=== PATIENT | female | born 1950 | race Caucasian/White ===

== ENCOUNTER → 2020-03-29 15:01 | Outpatient (CLI) | payer MEDICARE, SELFPAY ==
--- NOTE | ~2020-03-29 | MM_ITS ---
EXAMINATION: MM screening [facility] BI w janette HISTORY: Screening mammogram TECHNIQUE: Craniocaudal and mediolateral oblique 3-D tomosynthesis images were obtained and synthetic 2-D images were generated. CAD analysis was submitted and interpreted. COMPARISON: 01/22/2019, 12/25/2017, 12/16/2016 BREAST PARENCHYMAL COMPOSITION: The breasts are almost entirely fatty. FINDINGS: There is stable architectural distortion and dystrophic calcification in the middle third o f the upper left breast at site of prior excisional biopsy. There is no evidence of suspicious mass, calcification, or architectural distortion to suggest malignancy in either breast. There has been no suspicious interval change. IMPRESSION: 1. No mammographic evidence of malignancy. 2. Recommend routine screening mammography in one year. BI-RADS Category 2: Benign finding(s). Reviewed, dictated and finalized at location A.
== END ==
PROVIDERS: PCP Physician Assistant; Visit Provider Physician Assistant
DX: Z12.31 Encounter for screening mammogram for malignant neoplasm of breast (principal)
CPT/HCPCS: 77063; 77067

== ENCOUNTER → 2020-09-29 09:03 | Outpatient (CLI) | payer MEDICARE, SELFPAY ==
--- NOTE | ~2020-09-29 | CT_ITS ---
EXAMINATION: CT chest wo con DATE: 09/29/2020 09:31 INDICATION: Pulmonary nodule TECHNIQUE: Computed tomography (CT) of the chest was performed without intravenous contrast. The dose -length product (DLP) was 616.22 mGy-cm. Automated exposure control and iterative reconstruction tech June Black[employer] were employed. COMPARISON: 09/30/2019, 05/28/2019 FINDINGS: There is a new 1.3 cm subpleural nodule of the left lower lobe on image 75. There is a 1.9 cm subsolid nodule of the right upper lobe which has developed a 4 mm internal solid component (image 32). There are additional stable groundglass nodules in the left upper lobe, the superior segment of the right lower lobe. There is no pleural effusion or pneumothorax. The heart size is normal. Michele ry artery atherosclerosis is noted. There are no pathologically enlarged thoracic lymph nodes. Calcif ied pulmonary nodules and calcified right hilar and mediastinal lymph nodes are consistent with old g ranulomatous disease. Punctate calcifications in otherwise normal appearing liver and spleen likely r epresent healed granulomatous disease. There is mild thoracic spondylosis. IMPRESSION: 1. New 1.3 cm subpleural nodule of the left lower lobe suspicious for primary bronchogenic carcinoma. Recommend PET/CT or tissue sampling. 2. Development of a 4 mm solid component within a subsolid nodule of the right upper lobe. Follow-up low-dose CT in 3 months is recommended. 3. Multiple additional stable groundglass nodules of the lungs, likely benign. Reviewed, dictated and finalized at location A. NSING SPECIALIST IMPRESSION: 1. New 1.3 cm subpleural nodule of the left lower lobe suspicious for primary b ronchogenic carcinoma. Recommend PET/CT or tissue sampling. 2. Development of a 4 mm solid component within a subsolid nodule of the right upper lobe. Follow-up low-dose CT in 3 months is recommended. 3. Multiple additional stable groundglass nodules of the lungs, likely benign.
== END ==
PROVIDERS: PCP Internal Medicine; Visit Provider Internal Medicine
DX: R91.1 Solitary pulmonary nodule (principal)
CPT/HCPCS: 71250

== ENCOUNTER 2020-10-10 08:40 | Outpatient (CLI) | payer MEDICARE, SELFPAY ==
--- NOTE | ~2020-10-10 | PE_ITS ---
EXAMINATION: PET skull to mid thigh DATE: 10/10/2020 11:14 INDICATION: Lung nodules TECHNIQUE: Blood glucose level was 140 mg/dL. 10.56 mCi of 18-fluorodeoxyglucose (18-FDG) was adminis tered i.v. Low dose computed tomography (CT) images were acquired from the base of the brain to the p roximal thighs for attenuation correction and anatomic localization. Positron emission tomography (PE T) images were acquired in the same distribution beginning 61 minutes after injection. Images includi ng fused PET/CT images were reconstructed in axial, coronal, and sagittal planes. Automated exposure control technique was employed. The dose-length product was 1237.10 mGy-cm. COMPARISON: Chest CT dated 09/29/2020 and 09/30/2019 FINDINGS: Head/neck: There is symmetric increased activity in the oral cavity, palatine tonsils, parotid glands, submandi bular glands, laryngeal muscles and ocular muscles without CT correlate, likely physiologic. There is also mild likely physiologic increased FDG uptake at some of the cervical paraspinal musculature wit hout radiologic correlate. No pathologically enlarged cervical lymphadenopathy or suspicious foci of increased FDG uptake in the visualized head or neck. Chest: No significant increased FDG uptake associated with a 1.4 cm subpleural left lower lobe nodule which is increased from 5 x [address] dated 09/30/2019. Also without evident FDG uptake are a few subsolid nodular opacities in the bilateral upper lobes and superior segment of the right lower lobe. No new n odules or other airspace opacities or pleural effusion. Heart size is normal. Atherosclerotic coronar y artery cascade lesions. No pericardial effusion. Dual-lead cardiac pacemaker with lead tips at the right atrial appendage and near the apex of the right ventricle. Retained epicardial pacemaker leads. No pathologically enlarged or abnormal FDG avid thoracic lymphadenopathy. Abdomen/pelvis/proximal thighs: Physiologic renal accumulation and excretion of FDG activity in the kidneys, bladder and along portio ns of ureters. Normal degree and heterogenous pattern of increased uptake throughout the liver withou t radiologic correlate or dominant FDG avid lesion. The gallbladder, pancreas and bilateral adrenal g lands are normal. Splenic calcifications consistent with old granulomatous disease. Mild to moderate uptake scattered throughout the bowels without radiologic correlate, also likely physiologic. Postope rative change of prior ventral hernia mesh repair. No other abnormal foci of increased FDG uptake or pathologically enlarged lymphadenopathy in the abdomen, pelvis or proximal thighs. There is calcified atherosclerosis of the aorta and many of the other arteries. Musculoskeletal: There are bridging osteophytes at multiple levels in the thoracic spine, consistent with diffuse idio pathic skeletal hyperostosis (DISH). Severe lumbar spondylosis. No suspicious lytic, blastic or FDG a vid bone lesions. IMPRESSION: 1. Persistent 1.4 cm subpleural nodule in the left lower lobe which appears to be increase in size fr om 5 x [address] dated . Despite the low level of FDG uptake the interval growth is concernin g for low-grade malignancy and would consider further evaluation with CT-guided percutaneous biopsy. 2. No evident increased FDG uptake associated with several previous the described subsolid nodules in the bilateral upper lobe and superior segment of the right lower lobe. Although reassuring low-grade malignancy cannot be absolutely excluded and would recommend continued follow-up noncontrast chest C T in 3 months as previously recommended. Reviewed, dictated and finalized at location B. OMETRICIAN
[2020-10-10 09:19] LABS: Glucose Point of Care 140 (65-105)
== END 2020-10-10 08:41 | disposition home or self-care (01) ==
LOC: ANHIMG 08:47
PROVIDERS: PCP Physician Assistant; Visit Provider Physician Assistant
DX: R91.8 Other nonspecific abnormal finding of lung field (principal)
CPT/HCPCS: 78815; A9552

== ENCOUNTER 2020-10-17 01:23 | Outpatient (CLI) | payer MEDICARE, SELFPAY ==
[2020-10-17 19:18] LABS: SARS-CoV-2 RNA PCR Negative
== END 2020-10-17 01:24 | disposition home or self-care (01) ==
LOC: ANHCOVIDDT 01:24
PROVIDERS: PCP Physician Assistant; Visit Provider Internal Medicine
DX: Z01.812 Encounter for preprocedural laboratory examination (principal); Z20.822 Contact with and (suspected) exposure to COVID-19
CPT/HCPCS: C9803; U0003; U0005

== ENCOUNTER 2020-10-20 09:03 | Outpatient (CLI) | payer MEDICARE, SELFPAY ==
[2020-10-13 08:54] VITALS: BMI 45.2
[2020-10-20] VITALS (11 sets, daily range): BP systolic 124–178; BP diastolic 57–68; PULSE 59–70; RESP 18–20; O2SAT 93–99
--- NOTE | ~2020-10-20 | XR_ITS ---
EXAMINATION: XR chest 1V portable DATE: 10/20/2020 12:48 INDICATION: Left lung nodule status post percutaneous biopsy. TECHNIQUE: A single frontal view of the chest was obtained. COMPARISON: Chest single view 10/20/2020 at 1:45 AM FINDINGS: Sensitivity is decreased by obesity. There is no pneumonia, pleural effusion, or pneumothor ax. The heart size is normal. There is a left chest wall pacer with leads in the right atrium and rig ht ventricle. IMPRESSION: 1. No acute cardiopulmonary disease. Reviewed, dictated and finalized at location A. DOWEL MACHINE OPERATOR
--- NOTE | ~2020-10-20 | CT_ITS ---
EXAMINATION: CT biopsy lung w/imaging DATE: 10/20/2020 11:57 INDICATION: Solitary pulmonary nodule. TECHNIQUE: The procedure including the risks, benefits, and alternatives and possibility of chest tub e placement were discussed with the patient. Risks discussed included infection, approximately 1/20 r isk of symptomatic hemorrhage beyond mild hemoptysis, approximately 1/3 risk of pneumothorax, approxi mately 1/10 risk of pneumothorax severe enough to warrant chest tube placement, and rarely . The patient understood the risks and agreed to proceed. The patient was placed prone. The skin overlyin g the left lung was prepped and draped in sterile fashion. Anesthetic was administered with 1% lidoc bette subcutaneously. A 19 gauge outer needle was advanced under CT guidance to the lesion of interes t. A 20 gauge core biopsy needle was then used to obtain 3 core biopsy specimens. The needle was maisha samuel and the entry site was cleaned and dressed. The mA was adjusted according to patient size. Iterat connor reconstruction technique was employed. The dose-length product was 160.40 mGy-cm. There were no immediate complications. FINDINGS: CT images demonstrate the outer needle tip adjacent to a 13 mm nodule in left lung lower lo be. IMPRESSION: 1. CT-guided core needle biopsy of a 13 mm nodule in left lung lower lobe. Reviewed, dictated and finalized at location A. ET FORMER
--- NOTE | ~2020-10-20 | XR_ITS ---
EXAMINATION: XR chest 1V DATE: 10/20/2020 11:47 INDICATION: Left lung nodule status post percutaneous biopsy. TECHNIQUE: A single frontal view of the chest was obtained. COMPARISON: Chest single view 04/08/2018 FINDINGS: There is a nodule in left lower lobe. No pleural effusion or pneumothorax. The heart size i s normal. There is a left chest wall pacer with leads in the right atrium and right ventricle. IMPRESSION: 1. Left lower lobe pulmonary nodule suspicious for primary bronchogenic carcinoma. Reviewed, dictated and finalized at location A. H ATTENDANT IMPRESSION: 1. Left lower lobe pulmonary nodule suspicious for primary bronchogenic carcino ma.
--- NOTE | ~2020-10-20 | XR_ITS ---
EXAMINATION: XR chest 1V portable DATE: 10/20/2020 14:45 INDICATION: Left lung nodule status post percutaneous biopsy. TECHNIQUE: A single frontal view of the chest was obtained. COMPARISON: Chest single view at 12:46 PM FINDINGS: The chest demonstrates clear lungs without pneumonia, pleural effusion, or pneumothorax. Th e heart size is normal. There is a left chest wall pacer with leads in the right atrium and right shy tricle. IMPRESSION: 1. No acute cardiopulmonary disease. Reviewed, dictated and finalized at location A. STRINGER
[2020-10-20 09:32] LABS: Mean Platelet Volume 9.3 fl (7.4-10.4); Platelet Count Result 212 k/mm3 (150-375)
[2020-10-20 09:42] LABS: INR 1.1; Prothrombin Time 14.4 Seconds (11.1-14.7)
[2020-10-20 12:52] LABS: Glucose Point of Care 137 (65-105)
--- NOTE | 2020-10-20 12:53 | SUR.PHASEII ---
1240 PORTABLE CHEST XRAY TAKEN.
--- NOTE | 2020-10-20 15:41 | SUR.PHASEII ---
1443 PORTABLE CHEST XRAY TAKEN. 1455 DR LEHMAN CALLED & SAID PT CAN BE DISCHARGED HOME.
== END 2020-10-20 15:07 | disposition home or self-care (01) ==
PROVIDERS: Radiology Diagnostic Radiology; PCP Physician Assistant; Visit Provider Internal Medicine
DX: R91.1 Solitary pulmonary nodule (principal); R94.2 Abnormal results of pulmonary function studies
CPT/HCPCS: 32408; 36415; 71045; 82948; 85049; 85610; 88305

== ENCOUNTER → 2020-10-27 00:26 | Outpatient (CLI) | payer MEDICARE, SELFPAY ==
[2020-10-27 18:20] LABS: SARS-CoV-2 RNA PCR Negative
== END ==
PROVIDERS: PCP Physician Assistant; Visit Provider Physician Assistant
DX: Z01.812 Encounter for preprocedural laboratory examination (principal); Z20.822 Contact with and (suspected) exposure to COVID-19
CPT/HCPCS: C9803; U0003; U0005

== ENCOUNTER → 2020-11-06 00:19 | Outpatient (CLI) | payer MEDICARE, SELFPAY ==
[2020-11-06 19:33] LABS: SARS-CoV-2 RNA PCR Negative
== END ==
PROVIDERS: PCP Physician Assistant; Visit Provider Physician Assistant
DX: Z01.812 Encounter for preprocedural laboratory examination (principal); Z20.822 Contact with and (suspected) exposure to COVID-19
CPT/HCPCS: C9803; U0003; U0005

== ENCOUNTER 2020-11-13 10:20 | Outpatient (CLI) | payer MEDICARE, SELFPAY ==
[2020-10-25 15:00] VITALS: BMI 45.2
[2020-11-13] VITALS (9 sets, daily range): BP systolic 113–156; BP diastolic 42–99; PULSE 59–68; RESP 14–18; O2SAT 95–100
--- NOTE | ~2020-11-13 | XR_ITS ---
EXAMINATION: XR chest 1V portable DATE: 11/13/2020 13:09 INDICATION: Left lung nodule status post previous biopsy. TECHNIQUE: A single frontal view of the chest was obtained. COMPARISON: Chest single view at 12:09 PM FINDINGS: The chest demonstrates clear lungs without pneumonia, pleural effusion, or pneumothorax. Th e heart size is normal. There is a left chest wall pacer with leads in the right atrium and right shy tricle. IMPRESSION: 1. No acute cardiopulmonary disease. Reviewed, dictated and finalized at location A. PATROLLER
--- NOTE | ~2020-11-13 | CT_ITS ---
EXAMINATION: CT biopsy lung w/imaging DATE: 11/13/2020 11:59 INDICATION: Left lung lower lobe nodule. TECHNIQUE: The procedure including the risks, benefits, and alternatives and possibility of chest tub e placement were discussed with the patient. Risks discussed included infection, approximately 1/20 r isk of symptomatic hemorrhage beyond mild hemoptysis, approximately 1/3 risk of pneumothorax, approxi mately 1/10 risk of pneumothorax severe enough to warrant chest tube placement, and rarely . The patient understood the risks and agreed to proceed. The patient was placed prone. The skin overlyin g the left lung was prepped and draped in sterile fashion. Anesthetic was administered with 1% lidoc bette subcutaneously. A 19 gauge outer needle was advanced under CT guidance to the lesion of interes t. A 20 gauge core biopsy needle was then used to obtain several core biopsy specimens. The needle wa s removed and the entry site was cleaned and dressed. Automated exposure control and iterative recons truction technique were employed. The dose-length product was 301.63 mGy-cm. There were no immediate complications. FINDINGS: CT images demonstrate the outer needle tip adjacent to a 1.4 cm nodule in left lung lower l obe. IMPRESSION: 1. CT-guided core needle biopsy of a 1.4 cm nodule in left lung lower lobe. Reviewed, dictated and finalized at location A. GN ENGINEER PRODUCTS
--- NOTE | ~2020-11-13 | XR_ITS ---
EXAMINATION: XR chest 1V EXAM DATE: 11/13/2020 12:17 INDICATION: Status post left lung biopsy. TECHNIQUE: Portable AP frontal chest x-ray was obtained. Comparison is made to prior examination from 10/20/2020. FINDINGS: There is a dual lead pacemaker/AICD seen with leads projecting over the expected locations of the right atrial appendage and right ventricle. Can't identify the left posterior sulcal nodule which was biopsied. There is no evidence of postproce dure pneumothorax. No confluent airspace disease or pleural effusion. Cardiomediastinal silhouette is normal. There is aortic arteriosclerosis. There are bony degenerative changes. IMPRESSION: 1. No acute cardiopulmonary findings. 2. Left lower lobe nodule poorly visualized by this modality. Reviewed, dictated and finalized at location A. MAKER
--- NOTE | ~2020-11-13 | XR_ITS ---
EXAMINATION: XR chest 1V portable DATE: 11/13/2020 15:00 INDICATION: Left lung nodule status post percutaneous biopsy. TECHNIQUE: A single frontal view of the chest was obtained. COMPARISON: Chest single view at 1:07 PM FINDINGS: The chest demonstrates clear lungs without pneumonia, pleural effusion, or pneumothorax. Th e heart size is normal. There is a left chest wall pacer with leads in the right atrium and right shy tricle. IMPRESSION: 1. No acute cardiopulmonary disease. Reviewed, dictated and finalized at location A. THREAD MACHINE TENDER
--- NOTE | 2020-11-13 13:08 | SUR.PHASEII ---
received chest xray 1300.
[2020-11-13 13:15] LABS: Glucose Point of Care 133 (65-105)
--- NOTE | 2020-11-13 16:34 | SUR.PHASEII ---
Patient ready at 1515. Patient was unhooked from the monitors and just waiting for her ride to get here.
== END 2020-11-13 15:30 | disposition home or self-care (01) ==
PROVIDERS: Radiology Diagnostic Radiology; PCP Physician Assistant; Visit Provider Physician Assistant
DX: C34.92 Malignant neoplasm of unspecified part of left bronchus or lung (principal)
CPT/HCPCS: 32408; 71045; 82948; 88305; 88342; 88360

== ENCOUNTER 2021-04-05 08:52 | Outpatient (CLI) | payer MEDICARE, SELFPAY ==
--- NOTE | ~2021-04-05 | CT_ITS ---
EXAMINATION: CT diagnostic chest wo con DATE: 04/05/2021 09:36 INDICATION: Malignant neoplasm of the lower lobe of the left lung TECHNIQUE: Computed tomography (CT) of the chest was performed without intravenous contrast. The dose -length product (DLP) was 559.54 mGy-cm. Automated exposure control and iterative reconstruction tech [employer] were employed. COMPARISON: 09/29/2020 FINDINGS: The biopsy-proven squamous cell carcinoma of the left lower lobe measures 10 mm, previously 13 mm. There is a stable 2.2 cm subsolid nodule in the right upper lobe. The previously described 4 mm solid nodular component is decreased in size and now measures approximately 2 mm. Subsolid nodules of the left upper lobe remain stable. There is mild emphysema. No acute airspace opacities are ident ified. There is no pleural effusion or pneumothorax. No pathologically enlarged thoracic lymph nodes are identified. The heart size is normal. Calcified coronary artery atherosclerosis is noted. Calcifi ed mediastinal lymph nodes are consistent with old granulomatous disease. Punctate calcifications in otherwise normal appearing liver and spleen also likely represent healed granulomatous disease. There is moderate thoracic spondylosis. A dual-lead pacemaker of the left chest wall ends with leads in t he right ventricle and right atrium. IMPRESSION: 1. Interval decrease in size of the biopsy-proven squamous cell carcinoma of the left lower lobe. 2. Multiple stable groundglass nodules with decrease in size in a solid nodular component of a right upper lobe nodule. Continued follow-up is recommended. Reviewed, dictated and finalized at location B. IMPRESSION: 1. Interval decrease in size of the biopsy-proven squamous cell carcinoma of th e left lower lobe. 2. Multiple stable groundglass nodules with decrease in size in a solid nodular component of a right upper lobe nodule. Continued follow-up is recommended.
== END 2021-04-05 08:53 | disposition home or self-care (01) ==
LOC: ANHIMG 08:57
PROVIDERS: PCP Internal Medicine; Visit Provider Radiology Radiation Oncology
DX: C34.32 Malignant neoplasm of lower lobe, left bronchus or lung (principal); Z95.0 Presence of cardiac pacemaker; R91.8 Other nonspecific abnormal finding of lung field
CPT/HCPCS: 71250

== ENCOUNTER 2021-07-09 13:30 | Outpatient (CLI) | payer MEDICARE, SELFPAY ==
--- NOTE | ~2021-07-09 | CT_ITS ---
EXAMINATION: CT diagnostic chest wo con EXAM DATE: 07/09/2021 14:11 INDICATION: Malignant Neoplasm Of Bronchus Of Lt Lower Lobe. Follow-up. TECHNIQUE: Spiral CT of the chest without contrast. Axial, coronal and sagittal images of the chest were reviewed. Coronal maximum intensity pixel images of chest reviewed. The dose-length product ( DLP) for this examination was 413.31 mGy-cm. The exposure was tailored according to patient size (au to mA exposure control), and iterative reconstruction (ASIR) was used as additional dose reduction te chnique. Comparison is made to prior examination from 04/05/2021. FINDINGS: There is left-sided pacemaker/AICD device. There is mild emphysema. Several small ill-defi edgardo upper lobe groundglass regions are stable. Small left lower lobe biopsy-proven cancer more conflu ent measures about 9 mm also unchanged. There are no pleural or pericardial effusions. Tracheobronc hial tree is patent. There is no mediastinal, hilar or axillary lymphadenopathy. There is no pneu mothorax. Heart normal in size. There are likely coronary arterial stent or stents. Correlate wit h prior cardiac history. Liver and splenic granulomata. There is small sliding gastroesophageal hiat al hernia. There is thoracic spondylosis without osteoblastic or osteolytic lesions identified. IMPRESSION: 1. Stable left lower lobe biopsy-proven cancer, measuring about 9 mm. 2. Stable exam. Reviewed, dictated and finalized at location B.
== END 2021-07-09 13:31 | disposition home or self-care (01) ==
LOC: ANHIMG 13:36
PROVIDERS: PCP Internal Medicine; Visit Provider Physician Assistant Medical
DX: C34.32 Malignant neoplasm of lower lobe, left bronchus or lung (principal)
CPT/HCPCS: 71250

== ENCOUNTER 2021-10-16 10:18 | Outpatient (CLI) | payer MEDICARE, SELFPAY ==
--- NOTE | ~2021-10-16 | CT_ITS ---
EXAMINATION: CT diagnostic chest wo con EXAM DATE: 10/16/2021 11:11 INDICATION: Malignant neoplasm of bronchus. TECHNIQUE: Spiral CT of the chest without contrast. Axial, coronal and sagittal images of the chest were reviewed. Coronal maximum intensity pixel images of chest reviewed. The dose-length product ( DLP) for this examination was 375.40 mGy-cm. The exposure was tailored according to patient size (au to mA exposure control), and iterative reconstruction (ASIR) was used as additional dose reduction te chnique. Comparison is made to prior examination from 07/09/2021. FINDINGS: Patient had biopsy proven left lower lobe cancer. This region has decreased in size with so me adjacent linear opacities, scarring. Mild emphysema. There are no pleural or pericardial effusio ns. Tracheobronchial tree is patent. There is no mediastinal, hilar or axillary lymphadenopathy. There is no pneumothorax. Heart normal in size. Probable coronary artery stents. There is pacem briana/AICD device. There is small sliding gastroesophageal hiatal hernia. There is mild thoracic spon dylosis without osteoblastic or osteolytic lesions identified. IMPRESSION: 1. Predominantly linear left basilar opacities, treated lung cancer and scarring. 2. Small gastroesophageal hiatal hernia. 3. Mild emphysema. Reviewed, dictated and finalized at location G. GRINDING TECHNICIAN IMPRESSION: 1. Predominantly linear left basilar opacities, treated lung cancer and scarri ng. 2. Small gastroesophageal hiatal hernia. 3. Mild emphysema.
== END 2021-10-16 10:19 | disposition home or self-care (01) ==
PROVIDERS: PCP Internal Medicine; Visit Provider Physician Assistant Medical
DX: C34.32 Malignant neoplasm of lower lobe, left bronchus or lung (principal); R91.8 Other nonspecific abnormal finding of lung field; K44.9 Diaphragmatic hernia without obstruction or gangrene; J43.9 Emphysema, unspecified
CPT/HCPCS: 71250

== ENCOUNTER 2021-11-14 08:39 | Outpatient (CLI) | payer MEDICARE, SELFPAY ==
--- NOTE | ~2021-11-14 | US_ITS ---
US abdomen complete DATE: 11/14/2021 09:19 INDICATION: Abdominal pain TECHNIQUE: Real-time imaging and Doppler analysis of the abdomen COMPARISON: 02/01/2014 CT abdomen pelvis FINDINGS: No hepatic or pancreatic space-occupying mass lesion is evident. Normal hepatopedal portal venous flow direction. The common bile duct measures 5.6 mm, within normal range. No apparent gallstones are noted. There is normal size of the spleen. No renal mass lesion or hydronephrosis is detected. Normal caliber of the abdominal aorta. Inferior vena cava is unremarkable. IMPRESSION: No significant abnormality noted Reviewed, dictated and finalized at Location A. Reviewed, dictated and finalized at location A. IC LAY OUT WORKER
== END 2021-11-14 08:40 | disposition home or self-care (01) ==
LOC: ANHIMG 08:46
PROVIDERS: PCP Internal Medicine; Visit Provider Physician Assistant
DX: R10.9 Unspecified abdominal pain (principal); K82.9 Disease of gallbladder, unspecified
CPT/HCPCS: 76700

== ENCOUNTER 2022-01-14 10:58 | Outpatient (CLI) | payer MEDICARE, SELFPAY ==
--- NOTE | ~2022-01-14 | CT_ITS ---
EXAMINATION: CT diagnostic chest wo con DATE: 01/14/2022 11:26 INDICATION: History of lung cancer TECHNIQUE: Computed tomography (CT) of the chest was performed without intravenous contrast. The dose -length product (DLP) was 478.15 mGy-cm. Automated exposure control and iterative reconstruction tech [employer] were employed. COMPARISON: 10/16/2021, 09/29/2020, 05/28/2019 FINDINGS: There is a 2.3 x 1.8 cm groundglass nodule in the right upper lobe with a stable 3 mm solid component. A stable 1.5 cm groundglass nodule is present in the left upper lobe. There is a stable 1 .4 cm groundglass nodule of the superior segment of the right lower lobe. There is stable scarring in the left lower lobe at the site of a previously described malignancy. No new left lower lobe opaciti es are identified. A dual-lead cardiac pacemaker of the left chest wall ends with leads in expected l ocations. No pathologically enlarged thoracic lymph nodes are identified. The heart size is normal. P unctate calcifications in otherwise normal appearing liver and spleen likely represent healed granulo matous disease. There is mild thoracic spondylosis. IMPRESSION: 1. Stable left lower lobe opacities, consistent with treated malignancy. 2. Stable groundglass nodules of the lungs. Reviewed, dictated and finalized at location A.
== END 2022-01-14 10:59 | disposition home or self-care (01) ==
LOC: ANHIMG 11:08
PROVIDERS: PCP Physician Assistant; Visit Provider Physician Assistant Medical
DX: C34.32 Malignant neoplasm of lower lobe, left bronchus or lung (principal); R91.8 Other nonspecific abnormal finding of lung field
CPT/HCPCS: 71250

== ENCOUNTER 2022-04-23 10:13 | Outpatient (CLI) | payer MEDICARE, SELFPAY ==
--- NOTE | ~2022-04-23 | CT_ITS ---
EXAMINATION:CT diagnostic chest wo con DATE: 04/23/2022 10:39 INDICATION: Primary malignant neoplasm of bronchus of left lower lobe. TECHNIQUE: Computed tomography (CT) of the chest was performed without intravenous contrast. Automate d exposure control and iterative reconstruction technique were employed. The dose-length product (DLP ) was 432.09 mGy-cm. COMPARISON: Chest CT 01/14/2022, 04/05/21 FINDINGS: There is mild emphysema. There is mild atelectasis in the lungs. Again seen are groundglass opacities in the upper lobes and superior segment right lower lobe. There are airspace and groundgla ss opacities in basilar left lower lobe with volume loss without change. Calcified right lung nodules and calcified right hilar and mediastinal lymph nodes are consistent with old granulomatous disease. No pleural effusion. Cardiomegaly is noted. There are coronary artery calcifications. There is a le ft chest wall pacer with leads in the right atrium and right ventricle. No pericardial effusion. Calc ifications in the liver and spleen are consistent with old granulomatous disease. There are bridging endplate osteophytes at multiple levels in the spine, consistent with diffuse idiopathic skeletal hyp erostosis (DISH). There is mild thoracic spondylosis. IMPRESSION: 1. Stable airspace and groundglass opacities in left lower lobe, consistent with radiation pneumoniti s. Reviewed, dictated and finalized at location A. IMPRESSION: 1. Stable airspace and groundglass opacities in left lower lobe, consistent wit h radiation pneumonitis.
== END 2022-04-23 10:14 | disposition home or self-care (01) ==
PROVIDERS: PCP Hospitalist; Visit Provider Physician Assistant Medical
DX: C34.32 Malignant neoplasm of lower lobe, left bronchus or lung (principal); R91.8 Other nonspecific abnormal finding of lung field
CPT/HCPCS: 71250